=== PATIENT | female | born 1980 | race African-American/Black ===

== ENCOUNTER 2018-08-03 18:54 | Inpatient (IN) | payer MEDICAID ==
[~2018-08-03] VITALS: Ht 157.5 cm; Wt 75.3 kg
[2018-08-03] MEDS ORDERED: CALC-1042 MT (20:00)
[2018-08-03] MEDS ORDERED: FERR236T3 MT (20:00)
[2018-08-03] MEDS ORDERED: PREN-176 MT (20:00)
[2018-08-03] MEDS ORDERED: DEXT 5%/LR + PITOCIN 20UNITS/L 1,000 ML IV SCH (20:26)
[2018-08-03] MEDS ORDERED: CARBOPROST TROMETHAMINE 250 MCG/ML AMPUL IM PRN (20:30)
[2018-08-03] MEDS ORDERED: NALOXONE HCL 0.4 MG/ML 1ML VIAL IM PRN (20:30)
[2018-08-03] MEDS ORDERED: MISOPROSTOL 100MCG TABLET VG SCH (20:30)
[2018-08-03] MEDS ORDERED: LIDOCAINE HCL 1% 20ML VIAL (Pyxis) INJ INFIL SCH (20:30)
[2018-08-03] MEDS ORDERED: METHYLERGONOVINE MALEATE 0.2 MG/ML IM PRN (20:30)
[2018-08-03] MEDS ORDERED: BUTORPHANOL TARTRATE 2 MG/ML VIAL IV PRN (20:30)
[2018-08-03] MEDS: LACTATED RINGERS 1,000 ML IV SCH (20:44)
[2018-08-03] MEDS ORDERED: PENICILLIN G POTASSIUM 5 MMU in DEXT 5% WATER 100 ML IV NR (20:57)
[2018-08-03 21:06] LABS: BASOPHILS % 0.3 % (0.0-2.0); EOSINOPHILS % 0.8 % (0.0-5.0); HEMATOCRIT. 31.9 % (36.0-48.0); HEMOGLOBIN. 10.7 g/dL (12.0-16.0); LYMPHOCYTES % 16.9 % (20.0-50.0); MEAN CORPUSCULAR HEMOGLOBIN 28.1 pg (28.0-32.0); MEAN CORPUSCULAR VOLUME 83.4 fL (81.0-99.0); MEAN PLATELET VOLUME 8.3 fl (7.4-10.4); MONOCYTES % 6.3 % (2.0-8.0); NEUTROPHILS % 75.7 % (40.0-76.0); PLATELET 209 x1000/uL (130-400); RED BLOOD CELL COUNT 3.83 mill/uL (4.2-5.4)
[2018-08-03 21:11] LABS: CLARITY URINE CLEAR (CLEAR); COLOR URINE YELLOW (YELLOW); KETONES URINE 1+ (NEGATIVE); LEUKOCYTE ESTERASE URINE 2+ (NEGATIVE); NITRITE URINE NEGATIVE (NEGATIVE); OCCULT BLOOD URINE NEGATIVE (NEGATIVE); PH URINE 6.5 (4.5-8.0); PROTEIN URINE NEGATIVE (NEGATIVE); UROBILINOGEN URINE 0.2 E.U./dL (0.2-1.0)
[2018-08-03 21:15] LABS: INR 0.9; PARTIAL THROMBOPLASTIN TIME 25.3 sec (23.4-31.0); PROTHROMBIN TIME 9.3 sec (9.1-11.1)
[2018-08-03 21:23] LABS: *AMPHETAMINES SCREEN URINE NEGATIVE (NEGATIVE); *BARBITURATES SCREEN URINE NEGATIVE (NEGATIVE); *BENZODIAZEPINES SCREEN URINE NEGATIVE (NEGATIVE); *COCAINE SCREEN URINE NEGATIVE (NEGATIVE)
[2018-08-03 21:24] LABS: CANNABINOID URINE SCREEN NEGATIVE (NEGATIVE); METHADONE URINE SCREEN NEGATIVE (NEGATIVE); OPIATES URINE SCREEN NEGATIVE (NEGATIVE); PHENCYCLIDINE URINE SCREEN NEGATIVE (NEGATIVE)
[2018-08-03 21:45] LABS: HEPATITIS B SURFACE ANTIGEN NEGATIVE
[2018-08-04] MEDS: PENICILLIN G POTASSIUM 2.5 MMU in DEXTROSE 5% WATER 50 ML IV SCH (05:30)
[2018-08-04] MEDS: LACTATED RINGERS 1,000 ML IV SCH (09:01)
[2018-08-05] MEDS: PENICILLIN G POTASSIUM 2.5 MMU in DEXTROSE 5% WATER 50 ML IV SCH ×5 (02:54→22:26)
[2018-08-05] MEDS: LACTATED RINGERS 1,000 ML IV SCH ×3 (02:55→20:59)
[2018-08-05] MEDS ORDERED: DINOPROSTONE 10MG VAGINAL INSERT VG NR (16:15)
[2018-08-05] MEDS ORDERED: BUTORPHANOL TARTRATE 2 MG/ML VIAL IV PRN (21:15)
[2018-08-06] MEDS ORDERED: RHO(D) IMMUNE GLOBULIN 300 MCG/SYR IM PRN (00:30)
[2018-08-06] MEDS ORDERED: LANOLIN OINT 0.25 GM TUBE TOP PRN (00:30)
[2018-08-06] MEDS ORDERED: IBUPROFEN 400MG TABLET PO PRN (00:30)
[2018-08-06] MEDS ORDERED: METHYLERGONOVINE MALEATE 0.2 MG/ML IM PRN (00:30)
[2018-08-06] MEDS: DEXT 5%/LR + PITOCIN 20UNITS/L 1,000 ML IV SCH ×2 (01:15→02:26)
[2018-08-06 02:30] VITALS: BP 122/75
[2018-08-06 03:00] VITALS: BP 126/80
[2018-08-06] MEDS: IBUPROFEN 800MG TABLET PO PRN ×3 (03:33→17:13)
[2018-08-06 07:31] VITALS: BP 128/62
[2018-08-06 15:53] VITALS: BP 111/70
[2018-08-06 19:49] VITALS: BP 139/83
[2018-08-07 01:56] VITALS: BP 124/81
[2018-08-07] MEDS: IBUPROFEN 800MG TABLET PO PRN ×2 (03:25→09:08)
[2018-08-07 04:00] VITALS: BP 133/80
[2018-08-07 07:26] VITALS: BP 128/61
[2018-08-07 07:34] LABS: BASOPHILS % 0.3 % (0.0-2.0); LYMPHOCYTES % 23.7 % (20.0-50.0); MEAN CORPUSCULAR HEMOGLOBIN 28.1 pg (28.0-32.0); MEAN CORPUSCULAR VOLUME 84.5 fL (81.0-99.0); MEAN PLATELET VOLUME 8.6 fl (7.4-10.4); MONOCYTES % 7.6 % (2.0-8.0); NEUTROPHILS % 65.4 % (40.0-76.0); PLATELET 132 x1000/uL (130-400); RED BLOOD CELL COUNT 2.24 mill/uL (4.2-5.4); RED CELL DISTRIBUTION WIDTH 14.9 % (11.6-14.6)
[2018-08-07 07:38] LABS: HEMOGLOBIN. 6.3 g/dL (12.0-16.0)
== END 2018-08-07 11:30 | disposition home or self-care (01) | DRG 560 ==
LOC: L&D 18:54 → OBSVTOIN 18:54 → 7EST PP/OB 08-06 02:30
PROVIDERS: ADMIT Obstetrics & Gynecology; ATTEND Obstetrics & Gynecology
PROC: 10E0XZZ Delivery of Products of Conception, External Approach (ICD-10-PCS; principal; 2018-08-06)
DX: O48.0 Post-term pregnancy (principal); D64.9 Anemia, unspecified; O76 Abnormality in fetal heart rate and rhythm complicating labor and delivery; O99.02 Anemia complicating childbirth; Z3A.40 40 weeks gestation of pregnancy; Z37.0 Single live birth
CPT/HCPCS: 36415; 76805; 76815; 76818; 80305; 86592; 86703; 86762; 86850; 86900; 87340; 99281; G0378; J0595; J2540; J2590; J7060; J7120